=== PATIENT | male | born 1960 | race Caucasian/White ===

== ENCOUNTER 2019-08-11 20:10 | Emergency (ER) | payer OTHER, SELFPAY ==
[2019-08-11] VITALS (14 sets, daily range): BP systolic 95–139; BP diastolic 57–81; PULSE 81–103; RESP 13–21; TEMP 37.3–37.5; O2SAT 92–97
--- NOTE | ~2019-08-11 | XR_ITS ---
EXAMINATION: XR chest 2V EXAM DATE: 08/11/2019 21:18 INDICATION: TECHNIQUE: Frontal and lateral projections of the chest obtained and reviewed. Comparison is made to prior examination from 01/18/2019. FINDINGS: The lungs are clear. There are no pleural effusions. The cardiomediastinal silhouette is within normal limits. There is no pneumothorax suspected. The bones and soft tissues are unremarkab le. IMPRESSION: No acute cardiopulmonary findings. Reviewed, dictated and finalized at location A.
--- NOTE | 2019-08-11 20:36 | ECG_ITS ---
Measurements Intervals [place] Rate: 96 P: 28 NH: 140 QRS: 0 QRSD: 101 T: -20 QT: 324 QTc: 411 Interpretive Statements SINUS RHYTHM POSSIBLE LEFT VENTRICULAR HYPERTROPHY INFERIOR INFARCT, AGE INDETERMINATE BORDERLINE T WAVE ABNORMALITY- ANTEROLATERAL LEADS BASELINE ARTIFACT- AVF ABNORMAL ECG Electronically Signed On 08-12-2019 7:07:12 CDT by Flaoc Escamilla D.O.
--- NOTE | 2019-08-11 20:43 | ED.GENADULT ---
HPI - General Adult General Chief complaint: Fever Stated complaint: FEVER Time Seen by Provider: 08/11/19 20:31 History of Present Illness HPI narrative: Patient is a 59 y/o male complaining of fever and generalized weakness. He states that he was working outside [employer] and felt hot and weak. He states that his temperature was 102.3 when it was checked around 4:00 PM. 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 He denies any chest pain, abdominal pain, headache, cough or dysuria. Related Data Home Medications Medication Instructions Recorded Confirmed amlodipine-valsartan 1 tablet PO BID 01/19/19 01/19/19 aspirin 81 mg PO DAILY 01/19/19 01/19/19 atorvastatin 80 mg PO DAILY 01/19/19 01/19/19 cholecalciferol (vitamin D3) 50 mcg PO DAILY 01/19/19 01/19/19 [Vitamin D3] clopidogrel 75 mg PO DAILY 01/19/19 01/19/19 levothyroxine 150 mcg PO DAILY 01/19/19 01/19/19 metoprolol succinate 25 mg PO DAILY 01/19/19 01/19/19 omeprazole 20 mg PO DAILY 01/19/19 01/19/19 spironolactone 25 mg PO DAILY 01/19/19 01/19/19 testosterone cypionate 200 mg IM [id number] 01/19/19 01/19/19 Allergies Allergy/AdvReac Type Severity Reaction Status Date / Time gadobenic acid Allergy Nausea and Verified 08/11/19 20:26 [From contrast - MRI] Vomiting iohexol Allergy Nausea and Verified 08/11/19 20:26 [From contrast - CT, X-RAY] Vomiting Review of Systems Constitutional: Constitutional: Denies chills, Reports fever(s), Denies headache(s) and Reports weakness Eyes: Eyes: Denies blurry vision ENT: Denies headache(s) and Denies neck pain Cardiovascular: Cardiovascular: Denies chest pain and Denies dyspnea Respiratory: Respiratory: Denies cough and Denies dyspnea Gastrointestinal: Gastrointestinal: Denies abdominal pain, Denies diarrhea, Denies nausea and Denies vomiting Genitourinary: Genitourinary: Denies hematuria and Denies dysuria Musculoskeletal: Musculoskeletal: Denies back pain and Denies neck pain Neurologic: Denies headache(s) and Denies weakness [facility] Past Medical History Medical History CKD (chronic kidney disease) Stage III Dyslipidemia Hypothyroidism Low testosterone Myocardial infarct Three stents stent April [address] Chapman Peripheral neuropathy due to chemotherapy Throat cancer Stage JULIOCESAR diagnosed in 2009 status post chemotherapy and radiation therapy Tongue cancer With partial resection of the tongue 2016 Surgical History Surgical History H/O inguinal hernia repair S/P colonoscopy With hemorrhoids S/P dilatation of esophageal stricture Family History Family History Father Diabetes mellitus Acute myocardial infarction Son Diabetes mellitus Sibling Diabetes mellitus 1 brother Acute myocardial infarction Both brothers Hypertension Both brothers Mother Hyperlipidemia Social History Social History Social History: The patient lives in [facility] with his of 36 years. He has 2 adult sons. He is a computer game designer. He briefly smoked tobacco for 2 or 3 years when he was younger. He drinks alcohol rarely and on occasion but he had drank significantly more until the onset of his chronic kidney disease. He denies any illicit substance use. He is independent in activities of daily living. Years smoked: 3 Smoking status: Former smoker Tobacco type: cigarettes Second hand tobacco smoke exposure: Yes Alcohol intake: former Substance use: never Gender identity (if verbalized by the patient): Male Spiritual care concerns: No Agree to blood products: Yes Exam Const: General: no acute distress and well developed Orientation/consciousness: oriented to person, oriented to place, oriented to time and patient oriented x3 HENMT: Head:
[2019-08-11 20:51] LABS: Basophils Percent Auto 0.2 % (0.2-1.2); Eosinophils Absolute Auto 0.1 K/mm3 (0-0.3); Eosinophils Percent Auto 0.8 % (0-4.4); Hematocrit 47.9 % (42.0-52.0); Hemoglobin 16.4 g/dL (14.0-18.0); Immature Granulocyte Absolute 0.03 K/mm3 (0.00-0.031); Immature Granulocyte Percent A 0.3 % (0-0.5); Lymphocytes Absolute Auto 0.46 K/mm3 (0.9-3.2); Lymphocytes Percent Auto 4.4 % (18.3-44.2); Mean Corpuscular HGB Conc 34.2 g/dl (32-36); Mean Corpuscular Hemoglobin 31.7 pg (26-34); Mean Corpuscular Volume 92.6 fl (80-100); Mean Platelet Volume 10.2 fl (7.4-10.4); Monocytes Absolute Auto 0.6 K/mm3 (0.1-0.6); Monocytes Percent Auto 5.8 % (2.6-8.5); Neutrophils Absolute Auto 9.2 K/mm3 (1.3-6.7); Neutrophils Percent Auto 88.5 % (45.5-73.1); Platelet Count Result 176 k/mm3 (150-375); Red Blood Count 5.17 M/mm3 (4.6-6.20); Red Cell Distribution Width 13.3 % (11.5-14.5); White Blood Count 10.4 K/mm3 (4.5-10.0)
[2019-08-11 20:58] LABS: Alanine Aminotransferase 34 U/L (4-50); Albumin Level 4.5 g/dL (3.5-5.1); Alkaline Phosphatase 101 U/L (38-126); Aspartate Amino Transferase 40 U/L (17-59); Bilirubin,Total 1.1 mg/dL (0.2-1.3); Blood Urea Nitrogen 32 mg/dL (9-20); Calcium 8.8 mg/dL (8.4-10.2); Carbon Dioxide 25 mmol/L (22-30); Chloride 99 mmol/L (98-107); Estimated CRCL calculation 32 ml/min; Estimated Glomerular Filt Rate 28; Glucose 137 mg/dL (75-110); Potassium 3.5 mmol/L (3.4-5.0); Sodium 134 mmol/L (137-145)
[2019-08-11 21:10] LABS: Troponin I 0.028 ng/mL (0.000-0.034)
[2019-08-11 21:57] LABS: Creatine Kinase 323 U/L (55-170)
[2019-08-11 22:13] LABS: Add Urine Microscopic? NO; Appearance Urine Clear (Clear); Bilirubin Urine Negative (Negative); Blood Urine Negative (Negative); Color Urine Yellow (Yellow); Glucose Urine UA Negative (Negative); Ketones Urine Negative (Negative); Leukocyte Esterase Ur Negative LEU/UL (Negative); Nitrate Urine Negative (Negative); Protein Urine Negative (Negative); Specific Grav Ur 1.019 (1.001-1.035); Urobilinogen Urine Negative mg/dL (<2.0)
[2019-08-11] MEDS: SODIUM CHLORIDE 0.9% IV 1,000 ML 999 ML IV CONT (22:27)
[2019-08-12 14:40] LABS: SARS-CoV-2 RNA PCR Negative
== END 2019-08-11 23:23 | disposition home or self-care (01) ==
PROVIDERS: Emergency Provider Emergency Medicine; PCP Nurse Practitioner Adult Health
DX: R50.9 Fever, unspecified (principal); E11.22 Type 2 diabetes mellitus with diabetic chronic kidney disease; N18.3 Chronic kidney disease, stage 3 (moderate); E78.5 Hyperlipidemia, unspecified; E03.9 Hypothyroidism, unspecified; I25.2 Old myocardial infarction; G62.0 Drug-induced polyneuropathy; T45.1X5A Adverse effect of antineoplastic and immunosuppressive drugs, initial encounter; Z95.5 Presence of coronary angioplasty implant and graft; Z85.819 Personal history of malignant neoplasm of unspecified site of lip, oral cavity, and pharynx; R94.31 Abnormal electrocardiogram [ECG] [EKG]; Z92.3 Personal history of irradiation; Z92.21 Personal history of antineoplastic chemotherapy; Z85.810 Personal history of malignant neoplasm of tongue; Z90.49 Acquired absence of other specified parts of digestive tract; Z87.891 Personal history of nicotine dependence
CPT/HCPCS: 36415; 71046; 80053; 81003; 82550; 84484; 85025; 87635; 93005; 96360; 99284; C9803; J7030; U0003

== ENCOUNTER 2019-09-03 09:54 | Outpatient (CLI) | payer OTHER, SELFPAY ==
--- NOTE | 2019-09-03 11:00 | NEURO_ITS ---
Patient Number: [id number] Impression: # Complains of right hand numbness. # Right Carpal Tunnel Syndrome. # No ulnar neuropathy. # Normal needle/EMG exam. Nerve Conduction Studies Anti Sensory Summary Table Stim Site NR Peak (ms) P-T Amp (?V) Site1 Site2 Delta-P (ms) Dist (cm) Ric (m/s) Right Median Anti Sensory (2-3nd Digit) Wrist 4.3 10.4 Wrist 2-3nd Digit 4.3 14.0 33 Wrist 5.6 17.7 Wrist 2-3nd Digit 4.3 14.0 33 Right Radial Anti Sensory (Base 1st Digit) Wrist 2.2 4.7 Wrist Base 1st Digit 2.2 0.0 Right Ulnar Anti Sensory (5th Digit) Wrist 2.3 40.4 Wrist 5th Digit 2.3 14.0 61 Motor Summary Table Stim Site NR Onset (ms) O-P Amp (mV) Site1 Site2 Delta-0 (ms) Dist (cm) Ric (m/s) Right Median Motor (Abd Poll Brev) Wrist 5.4 2.2 Elbow Wrist 5.5 31.0 56 Elbow 10.9 2.0 Right Ulnar Motor (Abd Dig Minimi) Wrist 2.7 6.5 A Elbow Wrist 5.4 31.0 57 A Elbow 8.1 5.2 F Wave Studies NR F-Lat (ms) L-R F-Lat (ms) Right Median (Mrkrs) (Abd Poll Brev) 31.93 Right Ulnar (Mrkrs) (Abd Dig Min) 29.88 EMG Side Muscle Nerve Root Ins Act Fibs Amp Dur Recrt Comment Right 1stDorInt Ulnar C8-T1 Nml Nml Nml Nml Nml Right Ext Indicis Radial (Post Int) C7-8 Nml Nml Nml Nml Nml Right Ext Digitorum Radial (Post Int) C7-8 Nml Nml Nml Nml Nml Right BrachioRad Radial C5-6 Nml Nml Nml Nml Nml Right PronatorTeres Median C6-7 Nml Nml Nml Nml Nml Right Abd Poll Brev Median C8-T1 Nml Nml Nml Nml Nml Right ABD Dig Min Ulnar C8-T1 Nml Nml Nml Nml Nml MTDD
== END 2019-09-03 09:55 | disposition home or self-care (01) ==
PROVIDERS: PCP Nurse Practitioner Adult Health; Visit Provider Nurse Practitioner Adult Health
DX: R20.2 Paresthesia of skin (principal); G56.01 Carpal tunnel syndrome, right upper limb
CPT/HCPCS: 95886; 95909; 95911

== ENCOUNTER → 2019-09-03 14:19 | Outpatient (CLI) | payer OTHER, SELFPAY ==
--- NOTE | ~2019-09-03 | US_ITS ---
EXAMINATION: US venous doppler LE RT EXAM DATE: 09/03/2019 15:30 INDICATION: Right lower extremity swelling. TECHNIQUE: Multiple grayscale, color flow and Doppler images of the right lower extremity deep venous system were obtained and reviewed. There is no prior study for comparison. FINDINGS: The right common femoral, femoral and profunda veins demonstrate normal color flow, respira tory variation, augmentation and compressibility. Compressibility, color flow confirmed within the r ight popliteal, posterior tibial, peroneal, and greater saphenous veins. IMPRESSION: 1. No right lower extremity deep venous thrombosis. Reviewed, dictated and finalized at location B.
== END ==
PROVIDERS: PCP Nurse Practitioner Adult Health; Visit Provider Nurse Practitioner Adult Health
DX: R22.40 Localized swelling, mass and lump, unspecified lower limb (principal)
CPT/HCPCS: 93971

== ENCOUNTER → 2020-05-10 07:44 | Outpatient (CLI) | payer OTHER, SELFPAY ==
--- NOTE | ~2020-05-10 | XR_ITS ---
EXAMINATION: XR thoracic spine 3V EXAM DATE: 05/10/2020 08:51 INDICATION: Thoracic pain. TECHNIQUE: Frontal and lateral projections of the thoracic spine as well as lateral swimmers projecti on of the upper thoracic spine for interpretation. Comparison is made to prior examination from 01/18. FINDINGS: Mild mid thoracic and thoracolumbar disc disease with small endplate osteophytes. The vert ebral body and disc heights are otherwise well maintained. The vertebral bodies are aligned in the AP dimension. There are no acute fractures identified. Paraspinal soft tissue is unremarkable. Difficul t to appreciate any significant interval change. IMPRESSION: Mild thoracic spondylosis unchanged. No acute findings. Reviewed, dictated and finalized at location B. [address]
== END ==
PROVIDERS: PCP Nurse Practitioner Adult Health; Visit Provider Chiropractor Rehabilitation
DX: M47.894 Other spondylosis, thoracic region (principal)
CPT/HCPCS: 72072

== ENCOUNTER 2024-05-30 08:14 | Outpatient (CLI) | payer OTHER, SELFPAY ==
--- NOTE | ~2024-05-30 | XR_ITS ---
EXAMINATION: XR chest 2V 05/30/2024 08:34 INDICATION: Pneumonitis PROCEDURE: 2 view chest COMPARISON: 08/11/2019 FINDINGS: The lungs are clear. The cardiomediastinal silhouette is within normal limits. There are no pleural effusions. There is no pneumothorax suspected. IMPRESSION: 1: NO ACUTE CARDIOPULMONARY DISEASE. Reviewed, dictated and finalized at location A.
== END 2024-05-30 08:15 | disposition home or self-care (01) ==
LOC: MICIMG 08:16
PROVIDERS: PCP Nurse Practitioner; Visit Provider Nurse Practitioner
DX: J69.0 Pneumonitis due to inhalation of food and vomit (principal)
CPT/HCPCS: 71046